=== PATIENT | male | born 1930 | race Caucasian/White ===

== ENCOUNTER → 2017-04-07 | Outpatient (CLI) | payer BC | LOC: RAD 14:45 → VAS 16:55 | DX: R06.01 Orthopnea (principal); R06.09 Other forms of dyspnea; Z95.0 Presence of cardiac pacemaker; I51.7 Cardiomegaly ==

== ENCOUNTER 2018-08-24 13:56 | Emergency (ER) | payer MEDICARE ==
[~2018-08-24] VITALS: Ht 175.3 cm; Wt 79.5 kg
[2018-08-24 14:28] LABS: PROTHROMBIN TIME 23.4 SECONDS (9.0-12.0)
[2018-08-24] MEDS ORDERED: NORCO 325 MG-51 TA1 PO (16:54)
[2018-08-24] MEDS ORDERED: CEPHALEXIN500 M1 PO (16:54)
[2018-08-24 17:08] VITALS: BP 164/84
== END 2018-08-24 17:08 | disposition home or self-care (01) ==
LOC: ED 13:56
PROVIDERS: Nurse Practitioner
DX: S61.011A Laceration without foreign body of right thumb without damage to nail, initial encounter (principal); W25.XXXA Contact with sharp glass, initial encounter; Y92.009 Unspecified place in unspecified non-institutional (private) residence as the place of occurrence of the external cause; Z79.01 Long term (current) use of anticoagulants; Z95.0 Presence of cardiac pacemaker; Z23 Encounter for immunization; Z87.891 Personal history of nicotine dependence
CPT/HCPCS: 90714

== ENCOUNTER 2018-09-03 08:07 | Emergency (ER) | payer MEDICARE ==
[~2018-09-03 08:07] MED LIST: CEPHALEXIN500 M1 PO; NORCO 325 MG-51 TA1 PO
[2018-09-03 08:30] VITALS: BP 135/70
[2018-09-03] MEDS ORDERED: TOPROL XL100 MG PO (10:42)
[2018-09-03] MEDS ORDERED: COUMADIN 22.5 MG/TAB PO ×2 (10:44)
[2018-09-03] MEDS ORDERED: BETAPACE AF120 M1 PO (10:45)
[2018-09-03] MEDS ORDERED: FLOMAX0.4 MG PO (10:45)
[2018-09-03] MEDS ORDERED: AMLODIPINE BESY1 C12 PO (10:45)
[2018-09-03] MEDS ORDERED: LOPID600 M1 PO (10:45)
[2018-09-03] MEDS ORDERED: OMEPRAZOLE40 MG PO (10:46)
[2018-09-03] MEDS ORDERED: ATIVAN1 M1 PO (10:46)
[2018-09-03] MEDS ORDERED: CRESTOR 10MG10 MG PO (10:47)
[2018-09-03] MEDS ORDERED: CARDIZEM CD 24240 MG PO (10:47)
[2018-09-03] MEDS ORDERED: OCUVITE ADULT 51 SGL PO (10:48)
[2018-09-03] MEDS ORDERED: MIRALAX17 GM PO (10:48)
[2018-09-03] MEDS ORDERED: NATURAL FISH1200 MG PO (10:48)
[2018-09-03] MEDS ORDERED: NITROGLYCERIN0.4 M1 SL (10:48)
== END 2018-09-03 08:40 | disposition home or self-care (01) ==
LOC: ED 08:07
DX: Z48.02 Encounter for removal of sutures (principal)